=== PATIENT | female | born 1950 | race Caucasian/White ===

== ENCOUNTER 2020-01-26 06:31 | Inpatient (IN) | payer OTHER ==
[~2020-01-26] VITALS: Ht 152.4 cm; Wt 59.0 kg
[2020-01-26] MEDS ORDERED: ZYRTEC10 MG (06:41)
[2020-01-26] MEDS ORDERED: LIPITOR40 M1 (06:41)
[2020-01-26] MEDS ORDERED: SYNTHROID75 MCG (06:41)
[2020-01-26] MEDS ORDERED: SINGULAIR10 MG (06:42)
[2020-01-26] MEDS ORDERED: LOSARTAN POTASS25 MG (06:42)
[2020-01-26] MEDS ORDERED: ZANAFLEX4 MG (06:42)
[2020-01-26] MEDS ORDERED: ALBUTEROL0.63 MG/3 IH (06:43)
--- NOTE | 2020-01-26 06:50 | NUR ---
PTE ALERTA Y ORIENTADA X 3 ESFERAS, REFIERE VOMITOS HACE 2 PEREIRA Y DOLOR ABDOMINAL PARA LOS CUALES RECIBIO TX, DANIEL INDICA NO HILL KIRA (4 EPISODIOS DE VOMITOS EN EL ALEXA DE HOY).
--- NOTE | 2020-01-26 07:44 | NUR ---
PTE FEMENINA ALERTA Y ORIENTADA EN LAS BA ESFERAS ES EVALAUDA POR VESTA CUAL ORDENA TRATAMIENTO. ORIENTA APTE SOBRE TRATAMIENTO ORDENAOD REFIERE COMPRENDER. PROCEDE A COLECTAR MUETSRAS DE LABORATORIO Y CNANALIZAR VENA, BAJAO MEDIDAS ASEPTICAS. ADMINISTRA MEDICAMENTOS, BAJO MEDIDAS ASEPTICAS, ROLA ORDEN MEDICA. SE NOTIFICA A PERSONAL DE RADIOLOGIA PARA XRAY.
--- NOTE | 2020-01-26 17:28 | NUR ---
PTE ALERTA Y ORIENTADA X 3 ESFERAS EN JOSE CON BARANDAS ELEVADAS,EN COMPANIA DE FAMILIAR,EN JOSE CON BARANDAS ELEVADAS.AREA DE VENOPUNCION PATENTE Y JIMMY DE EDEMA CON FLUIDOS DE MANTENIMIENTO BAJANDO SIN DIFICULTAD.REFIERE DOLOR ABDOMINAL Y VOMITOS,SE LE ADMINISTRA MEDICAMENTO ROLA ORDEN MEDICA EN GLUTEO RT.SE ORIENTA A FAMILIAR SOBRE DIETA NPO YA QUE REFIRIO LE TRAERIA COMIDA PORQUE PTE LLEVA 3 PEREIRA SIN COMER.PENDIENTE A RESULTADO DE CT.
--- NOTE | 2020-01-26 19:36 | NUR ---
SE COLOCA TUBO NGT A PTE EN FOSSA NASAL LT CON TUBO #16 SE CONECTA EL MISMO A SUCCION INTERMITENTE. SE OBSERVA 20ML EN CANISTER DE SUCCION. SE ORIENTA A PTE SOBRE TUBO NGT PTE REFIERE ENTENDER. SE COLOCA MED PARA EL DOLOR A PTE EL UCAL TOLERA. PTE EN ESPERA DE CONSULTA CON CIRUGANO. PTE SE CONTINUA MONITORIANDO POR CAMBIOS.
== END 2020-02-12 15:39 | disposition home or self-care (01) | DRG 336 ==
LOC: ER 06:31 → MEDI 20:09 → SURG 01-27 19:19 → SURH 02-03 20:37
PROVIDERS: ADMIT Surgery; ATTEND Surgery
PROC: 0DH67UZ Insertion of Feeding Device into Stomach, Via Natural or Artificial Opening (ICD-10-PCS; 2020-01-26)
PROC: 3E0G76Z Introduction of Nutritional Substance into Upper GI, Via Natural or Artificial Opening (ICD-10-PCS; 2020-01-26)
PROC: BW21Y0Z Computerized Tomography (CT Scan) of Abdomen and Pelvis using Other Contrast, Unenhanced and Enhanced (ICD-10-PCS; 2020-01-26)
PROC: 0T9B70Z Drainage of Bladder with Drainage Device, Via Natural or Artificial Opening (ICD-10-PCS; 2020-01-26)
PROC: 0DNC0ZZ Release Ileocecal Valve, Open Approach (ICD-10-PCS; principal; 2020-01-27 08:45)
PROC: 8E0ZXY6 Isolation (ICD-10-PCS; 2020-02-04)
PROC: BW40ZZZ Ultrasonography of Abdomen (ICD-10-PCS; 2020-02-07)
PROC: BW28ZZZ Computerized Tomography (CT Scan) of Head (ICD-10-PCS; 2020-02-09)
DX: K56.600 Partial intestinal obstruction, unspecified as to cause (principal); A04.72 Enterocolitis due to Clostridium difficile, not specified as recurrent; E03.8 Other specified hypothyroidism; Z20.828 Contact with and (suspected) exposure to other viral communicable diseases; K66.0 Peritoneal adhesions (postprocedural) (postinfection); R31.29 Other microscopic hematuria; D64.9 Anemia, unspecified; R51 Headache; E87.6 Hypokalemia; S31.822A Laceration with foreign body of left buttock, initial encounter; W45.8XXA Other foreign body or object entering through skin, initial encounter; Y92.230 Patient room in hospital as the place of occurrence of the external cause; Y93.89 Activity, other specified; Y99.8 Other external cause status; Z86.73 Personal history of transient ischemic attack (TIA), and cerebral infarction without residual deficits